=== PATIENT | female | born 1990 | race Caucasian/White ===

== ENCOUNTER 2018-08-28 12:10 | Day surgery (SDC) | payer OTHER ==
[~2018-08-28] VITALS: Ht 172.7 cm; Wt 77.0 kg
[2018-08-28 12:59] VITALS: Ht 172.7 cm; Wt 77.0 kg
--- NOTE | 2018-08-28 13:05 | PREAC ---
Date/Time of Note Date/Time of Note DATE: 08/28/18 TIME: 13:04 Anesthesia Eval and Record Evaluation Time Pre-Procedure Interview DATE: 08/28/18 TIME: 13:04 Age 27 Sex female NPO: 8 hrs Preoperative diagnosis abd pain Planned procedure egd Past Medical History Past Medical History: Includes GI: GERD Psych: Anxiety Surgery & Anesthesia Issues No known issue Meds Anticoagulation: No Beta Rosenda within 24 hr: No Reason Beta Rosenda not given: Pt. not on B-Rosenda Meds reviewed: Yes Allergies Allergies Reviewed: Yes Labs/Studies Labs Reviewed: Reviewed by anesthesiologist test: Negative Studies: ECG (n/a), CXR (n/a) Pre-procedure Exam Airway: Adequate mouth opening Mallampati: Mallampati I Teeth: Normal Lung: Normal Heart: Normal ASA Physical Status ASA physical status: 1 Emergency: None Planned Anesthetic General/MAC: MAC Planned Pain Management Parenteral pain med Pre-operative Attestations Prior to commencing anesthesia and surgery, the patient was re-evaluated, there was verification of: *The patient's identity *The results of appropriate recent lab work and preoperative vital signs *The above evaluation not changing prior to induction *Anesthetic plan, risk benefits, alternative and complications discussed with patient/family; questions answered; patient/family understands, accepts and wishes to proceed. CARL GONZALEZ MD August 28, 2018 13:05
[2018-08-28] MEDS ORDERED: LEXAPRO (13:06)
[2018-08-28] MEDS ORDERED: OMEPRAZOLE (13:06)
[2018-08-28 13:07] VITALS: BP 127/77; PULSE 53; RESP 18
[2018-08-28] MEDS ORDERED: PROPOFOL 20 ML ONE (13:07)
[2018-08-28] MEDS ORDERED: FENTAnyl 50 MCG/ML VIAL ONE (13:08)
[2018-08-28] MEDS ORDERED: FENTAnyl 50 MCG/ML VIAL IV PRN (13:30)
[2018-08-28] MEDS ORDERED: ONDANSETRON 4 MG INJ IV PRN (13:30)
[2018-08-28 13:52] VITALS: BP 120/76; PULSE 60; RESP 20
--- NOTE | 2018-08-29 14:05 | PAC ---
Date/Time of Note Date/Time of Note DATE: 08/29/18 TIME: 14:04 Post-Anesthesia Notes Post-Anesthesia Note Last documented vital signs Vital Signs Date Temp Pulse Resp B/P (MAP) Pulse Ox O2 O2 Flow FiO2 Time Delivery Rate 08/28/18 97.5 60 20 120/76 99 Room Air 13:52 (91) 08/28/18 97.5 13:07 Activity: WNL Respiratory function: WNL Cardiovascular function: WNL Mental status: Baseline Pain reasonably controlled: Yes Hydration appropriate: Yes Nausea/Vomiting absent: No CARL GONZALEZ MD August 29, 2018 14:05
== END 2018-08-28 14:58 | disposition home or self-care (01) ==
LOC: GIL 12:10
PROVIDERS: ATTEND Internal Medicine Gastroenterology
DX: K44.9 Diaphragmatic hernia without obstruction or gangrene (principal); K21.9 Gastro-esophageal reflux disease without esophagitis
CPT/HCPCS: 43239; 84703; 88305; 88312; J3010